=== PATIENT | female | born 1990 | race Two or more races ===

== ENCOUNTER 2022-10-04 16:35 | Outpatient (CLI) | payer OTHER ==
[~2022-10-04] VITALS: Ht 167.6 cm; Wt 63.5 kg
== END 2022-10-04 19:46 | disposition left against medical advice (07) ==
LOC: LDR 16:35 → OBS/DEL 16:35 → LDR 19:46 → OBS/DEL 19:46 → EDSTATUS 10-08 14:00
PROVIDERS: ATTEND Obstetrics & Gynecology
DX: O36.8130 Decreased fetal movements, third trimester, not applicable or unspecified (principal); Z3A.33 33 weeks gestation of pregnancy; Z20.822 Contact with and (suspected) exposure to COVID-19